=== PATIENT | female | born 1955 | race African-American/Black ===

== ENCOUNTER 2021-09-25 08:47 | Day surgery (SDC) | payer OTHER, SELFPAY ==
[~2021-09-25] VITALS: Ht 154.9 cm; Wt 95.3 kg
[2021-09-25] MEDS ORDERED: fentaNYL citrate 0.05 MG/ML VIAL ONE (09:57)
[2021-09-25] MEDS ORDERED: diphenhydrAMINE 50 MG/ML VIAL ONE (09:57)
[2021-09-25] MEDS ORDERED: MIDAZOLAM 2 MG/2 ML VIAL ONE ×2 (09:57)
[2021-09-25] MEDS ORDERED: LIDOCAINE 2% 100 MG/5 ML UJET TP ONE ×2 (09:58→10:20)
[2021-09-25] MEDS ORDERED: MIDAZOLAM 2 MG/2 ML VIAL IVP ONE ×2 (10:20→10:30)
[2021-09-25] MEDS ORDERED: fentaNYL citrate 0.05 MG/ML VIAL IVP ONE (10:20)
== END 2021-09-25 11:32 | disposition home or self-care (01) ==
LOC: MDS 08:47 → MMU 08:48 → MDS 11:32
PROVIDERS: ATTEND Internal Medicine Gastroenterology
DX: Z12.11 Encounter for screening for malignant neoplasm of colon (principal); K63.5 Polyp of colon; Z86.010 Personal history of colon polyps; Z87.891 Personal history of nicotine dependence; Z79.899 Other long term (current) drug therapy; Z20.822 Contact with and (suspected) exposure to COVID-19
CPT/HCPCS: 45385; 87426; J1200; J2250; J3010